=== PATIENT | female | born 1995 | race Caucasian/White ===

== ENCOUNTER → 2024-11-27 15:27 | Outpatient (REF) | payer BC, SELFPAY | LOC: RAD 15:27 | PROVIDERS: ATTENDING PHYSICIAN Family Medicine | DX: R07.89 Other chest pain (principal) | CPT/HCPCS: 71275; Q9967 ==

== ENCOUNTER → 2025-03-15 09:34 | Outpatient (REF) | payer BC, SELFPAY | LOC: WDC 09:34 | PROVIDERS: ATTENDING PHYSICIAN Physician Assistant Medical | DX: R22.30 Localized swelling, mass and lump, unspecified upper limb (principal) | CPT/HCPCS: 76642; 77062; 77066 ==